=== PATIENT | male | born 1995 | race African-American/Black ===

== ENCOUNTER 2016-12-18 14:56 | Inpatient (IN) | payer OTHER ==
[~2016-12-18] VITALS: Ht 180.3 cm; Wt 86.3 kg
[2016-12-18 18:37] LABS: MEAN CORPUSCULAR HEMOGLOBIN 28.6 pg (27.0-33.0); MEAN CORPUSCULAR HGB CONC 33.2 g/dl (32.0-36.5); MEAN CORPUSCULAR VOLUME 86.1 fl (80.0-96.0); RED CELL DISTRIBUTION WIDTH 12.6 % (11.5-14.5); WHITE BLOOD COUNT 5.6 K/mm3 (4.0-10.0)
[2016-12-18 18:56] LABS: METHADONE URINE NEGATIVE (NEGATIVE)
[2016-12-18 19:06] LABS: ALBUMIN 3.7 GM/DL (3.2-5.2); ALBUMIN/GLOBULIN RATIO 1.32 (1.00-1.93); ALKALINE PHOSPHATASE 48 U/L (45-117); ALT/SGPT 43 U/L (12-78); ANION GAP 6 MEQ/L (8-16); AST/SGOT 22 U/L (15-37); BILIRUBIN,DIRECT 0.1 MG/DL (0.0-0.2); BILIRUBIN,TOTAL 0.4 MG/DL (0.2-1.0); BLOOD UREA NITROGEN 14 MG/DL (7-18); CALCIUM LEVEL 8.5 MG/DL (8.5-10.1); CARBON DIOXIDE LEVEL 29 MEQ/L (21-32); CHLORIDE LEVEL 106 MEQ/L (98-107); GLUCOSE, FASTING 98 MG/DL (70-105); POTASSIUM SERUM 3.7 MEQ/L (3.5-5.1); SODIUM LEVEL 141 MEQ/L (136-145); TOTAL PROTEIN 6.5 GM/DL (6.4-8.2)
[2016-12-18 21:35] VITALS: BP 142/95
[2016-12-18] MEDS ORDERED: traZODone 50 MG TAB PO PRN (22:30)
[2016-12-18] MEDS ORDERED: ACETAMINOPHEN TAB 650MG DOSE (2X325MG) PO PRN (22:30)
[2016-12-18] MEDS ORDERED: MOM 30ML SUSPENSION UDC PO PRN (22:30)
[2016-12-18] MEDS ORDERED: MAALOX 30 ML SUSP *UDC PO PRN (22:30)
[2016-12-19 06:31] VITALS: BP 144/77
--- NOTE | 2016-12-19 10:20 | HPEPDOC ---
Medical History and Physical Date of Admission December 18, 2016 at 18:44 History and Physical PCP: Alexey ATTENDING: Dr. Rush Isabel HPI: 21yoM admitted to [facility] for unspecified depressive disorder, being medically examined today. No acute medical complaints today. Denies any fevers, chills, weakness, fatigue, GUILLEN, CP, SOB, cough, palpitations, abdominal pain, N/V /D or changes in bowel or bladder habits. 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 Tobacco use: Once per month ETOH: One to 2 drinks every 2 months Illicit Drugs: Marijuana every few weeks. IV Drug Use: Denies Tattoos done unprofessionally: Denies FAMHX: Mother: Alive, well Father: Alive, well Siblings: Alive, well Children: none Unexpected deaths due to medical reasons: None. ROS: As noted in HPI, otherwise 11pt ROS of systems reviewed and unremarkable. PE: GEN: 21yoM, appears stated age. Well-nourished, well developed. No acute distress. Alert and oriented x 3. Pleasant, interactive. HEENT: Normocephalic, atraumatic. Pupils are equal, round, and reactive to light. Extraocular movements are intact. No nystagmus appreciated. Sclera are nonicteric. Conjunctiva without injection. Nose midline. Nasal turbinates without bogginess. EACs both patent BL. TMs both visualized and rios with good cone of light, no bulging or erythema. No facial asymmetry. Moist mucous membranes. Dentition fair. Pharynx pink and moist, no cobblestoning. Neck supple , trachea midline. No lymphadenopathy or thyromegaly appreciated. CHEST: Regular rate and rhythm, +S1, +S2 LUNGS: Clear to auscultation bilaterally. No wheezes, rales, or rhonchi. Breathing appears symmetric and easy. Patient is speaking in full sentences. No accessory muscle use. ABD: Round, soft, non-tender, non-distended. +Bowel sounds throughout. No rebound or guarding. No costovertebral angle tenderness. EXT: Pulses 2+ bilaterally dorsalis pedis and radial. No lower extremity edema appreciated. SKIN: [place], dry, warm. Capillary refill <2sec. No rashes. NEURO: Alert and oriented x 3. Cranial nerves III-XII are intact. No focal deficits appreciated. EKG: Pending. A&P: 21yoM admitted to [facility] for unspecified depressive disorder 1. Psych. Plan per Psychiatry. Obtain baseline EKG to assure the safety of psychiatric medications as they can prolong the QT interval. 2. Nicotine dependence. Patch available. 3. Allergic rhinitis. Claritin daily as needed. 4. Follow up with PCP on discharge. 5. Emiliano safety inspector present throughout exam. Vital Signs Vital Signs Date Time Temp Pulse Resp B/P (MAP) Pulse Ox O2 Delivery O2 Flow Rate FiO2 12/19/16 06:31 97.9 61 16 144/77 (99) 12/18/16 21:35 Room Air 12/18/16 14:57 99 Laboratory Data Labs 24H Laboratory Tests 2 12/18/16 18:24: Anion Gap 6L, Calcium Level 8.5, Aspartate Amino Transf (AST/SGOT) 22, Alanine Aminotransferase (ALT/SGPT) 43, Alkaline Phosphatase 48, Total Bilirubin 0.4, Direct Bilirubin 0.1, Total Protein 6.5, Albumin 3.7, Albumin/Globulin Ratio 1.32, Thyroid Stimulating Hormone (TSH) 1.730, Salicylates Level < 1.7L, Acetaminophen Level < 2.0L, Ethyl Alcohol Level < 0.003 12/18/16 18:26: Urine Amphetamines Screen NEGATIVE, Urine Benzodiazepines Screen NEGATIVE, Urine Opiates Screen NEGATIVE, Urine Methadone Screen NEGATIVE, Urine Barbiturates Screen NEGATIVE, Urine Phencyclidine Screen NEGATIVE, Urine Cocaine Metabolite Screen NEGATIVE, Urine Cannabinoids Screen NEGATIVE CBC/BMP Laboratory Tests 12/18/16 18:24 Red Blood Count 4.96, Mean Corpuscular Volume 86.1, Mean Corpuscular Hemoglobin 28.6, Mean Corpuscular Hemoglobin Concent 33.2, Red Cell Distribution Width 12.6 Home Medications No Active Prescriptions or Reported Meds Allergies Coded Allergies: No Known Allergies (Unverified , 12/18/16) Shawna Batista December 19, 2016 10:20
[2016-12-19] MEDS ORDERED: LORATADINE 10 MG TAB PO PRN (10:30)
[2016-12-19 11:44] LABS: ANION GAP 5 MEQ/L (8-16); BLOOD UREA NITROGEN 13 MG/DL (7-18); CALCIUM LEVEL 9.3 MG/DL (8.5-10.1); CARBON DIOXIDE LEVEL 30 MEQ/L (21-32); CHLORIDE LEVEL 106 MEQ/L (98-107); CREATININE FOR GFR 1.28 MG/DL (0.70-1.30); GLUCOSE, FASTING 88 MG/DL (70-105); POTASSIUM SERUM 4.4 MEQ/L (3.5-5.1); SODIUM LEVEL 141 MEQ/L (136-145)
--- NOTE | 2016-12-19 12:42 | MHHPE ---
DATE OF ADMISSION: 12/18/2016 LEGAL STATUS AT ADMISSION: 9.39 legal status. CHIEF COMPLAINT: "I have been feeling depressed". HISTORY OF PRESENT ILLNESS: 21-year-old male without prior psychiatric history admitted to our unit on a 9.39 legal status. According to the chart, the patient came to the emergency department to be evaluated for depression and suicidal ideation. The patient reports that for the last several days his depressive symptoms have worsened and he started to think about suicide. He said that he called his mom. He was seen at [place] and was sent to our emergency department for evaluation. The patient admits feeling down and depressed. He admits that he has become very emotional, "little things will set me off". Says that he cries for no reason and he is breaking down. The patient reports his energy level is low and has poor self esteem and also anhedonia. The patient admits intermittent suicidal thoughts and is motivated for treatment. The patient also reports that before he was evaluated he was having panic attacks. Stressors are the fact that his girlfriend may be moving out of town with her family. There is no evidence of psychotic symptoms. No auditory or visual hallucinations or delusions during the interview. PAST MEDICAL HISTORY: The patient reports that he has a benign heart murmur since with no complications. No known drug allergies. PAST PSYCHIATRIC HISTORY: The patient has no prior psychiatric history. This is his first admission and the first intervention from the psychiatric point of view. FAMILY HISTORY: The patient believes his mother has depression, although she has never been diagnosed. He has a grandfather that was an alcoholic and a brother who abuses cannabis. SUBSTANCE ABUSE HISTORY: The patient denies any current or past problems with drugs or alcohol. He admits he experimented with marijuana in the past, but is not currently using. SOCIAL HISTORY: The patient was raised by both his parents. His father was an active duty that just retired. The patient denies any problems socializing. The patient denies any abuse or neglect during childhood. He graduated high school. He is working temporarily, but is planning to go back to school in the near future. The patient reports that he has a good support system with his family and his friends. REVIEW OF SYSTEMS: Constitutional: No weight loss, fever, chills, weakness or fatigue. HEENT: No visual loss, blurry vision, double vision or yellow sclerae. No hearing loss, nasal congestion, runny nose or sore throat. Skin: No rash or itching. Cardiovascular: No chest pain, chest pressure, chest discomfort, palpitations or edema. Respiratory: No shortness of breath, cough or sputum. Gastrointestinal (GI): No anorexia, nausea, vomiting or diarrhea. No abdominal pain. No blood. Genitourinary (): No burning or pain on urination. Neurological: No headache, dizziness, syncope, paralysis, ataxia, numbness or tingling. Musculoskeletal: No muscle, back pain, joint pain or stiffness. Hematologic: No anemia, bleeding or bruising. Lymphatics: No history of a splenectomy. Endocrinologic: No report of sweating, cold or heat intolerance. No polyuria or polydipsia. Allergies: No history of asthma, hives, eczema or rhinitis. PHYSICAL EXAMINATION: As per physician customer care assistant. LABS AT ADMISSION: CBC is unremarkable. CMP within normal limits. TSH within normal limits. Urine drug screen is negative. Blood alcohol level is negative. MENTAL STATUS EXAMINATION: The patient is dressed in [facility]. The patient is cooperative during exam. Speech is soft and monotone. Eye contact is poor. Mood is depressed and anxious. Affect is labile, restricted and congruent with mood. The patient is oriented to time, place, person and situation. Maintains attention and concentration correctly. Instant recall, recent and remote memory are intact. Thought processes are coherent, logical and goal directed. The patient does not have auditory or visual hallucination. The patient does not have paranoid, persecutory, somatic, grandiose or lutheran delusions. The patient is reporting suicidal ideation, but denies homicidal thoughts. Judgment and insight are limited. DIAGNOSES: [place] I: Major depressive disorder. Morenci II: Deferred. [place]nci III: None acute. INITIAL TREATMENT PLAN: The patient was admitted on a 9.39 legal status. Complete history was obtained. With his permission, family with be contacted and database will be expanded. His medication regime will be reviewed and changed accordingly. He will be provided with protected environment. He will be treated with individual, group and milieu therapy. He will also receive supportive psychoeducation. Discharge planning will commence immediately. Length of stay will be between 5-7 days. Outpatient followup will be strongly recommended. The treatment plan will focus initially on depression and risk for suicide.
[2016-12-19] MEDS: VENLAFAXINE **XR** 37.5 MG CAPSULE PO SCH (13:06)
[2016-12-20 06:46] VITALS: BP 134/68
[2016-12-20] MEDS: VENLAFAXINE **XR** 37.5 MG CAPSULE PO SCH (08:49)
--- NOTE | 2016-12-20 15:50 | IPN ---
DATE: 12/20/2016 21-year-old male admitted for depression. SUBJECTIVE: "I'm feeling about the same." OBJECTIVE: No major changes from yesterday's evaluation. Patient denies side effect from the medication. Patient was able to sleep well last night. Patient continues anxious with soft, monotone speech, restricted facial expression, intermittent suicidal thoughts, and high anxiety. No evidence of psychotic symptoms. MENTAL STATUS EXAMINATION: Patient is dressed in [facility]. Patient is cooperative during exam. Has poor eye contact. Speech is slow and monotone. Mood is depressed and anxious. Affect is congruent with mood. No evidence of delusions or hallucinations. Short-term and long-term memory are fair. Patient is fully oriented. Associations are intact. Thinking is logical. Thought content is appropriate. Patient is able to contract for safety while hospitalized. Insight and judgment is limited. ASSESSMENT: 1. Depression. 2. Suicidal ideation. PLAN: 1. Increase Effexor XR to 75 mg by mouth every morning. 2. Continue with trazodone as needed for insomnia. 3. Continue medication management, individual and group therapy.
[2016-12-20 18:00] VITALS: BP 146/76
--- NOTE | 2016-12-20 19:44 | ECGEPIP ---
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 No prior ECG available for comparison at the time of interpretation. Electronically Signed On 12-20-2016 19:43:42 EDT by Rush Ramos
[2016-12-21 06:22] VITALS: BP 134/68
[2016-12-21] MEDS: VENLAFAXINE **XR** 75MG CAPSULE PO SCH (07:58)
[2016-12-21 18:00] VITALS: BP 123/73
--- NOTE | 2016-12-21 22:19 | IPN ---
DATE: 12/21/2016 A 21-year-old male admitted for depression and suicidal ideation. SUBJECTIVE: "I'm feeling a little better." OBJECTIVE: Patient is improving slowly. He is socializing better. He is getting out of the room and interacting better with other patients and staff. Patient is still displaying some psychomotor retardation, but is improving. Facial expression is somewhat restricted. Patient is able to contract for safety during the interview. There is no evidence of psychotic symptoms. MENTAL STATUS EXAMINATION: Patient is dressed in [facility]. Patient is cooperative during examination. Has fair eye contact. Speech is soft and monotone. Mood is depressed and anxious, but improving. Affect is somewhat restricted, but also improving. No delusions or hallucinations. Memory is fair. Patient is fully oriented. Sensations are intact. Thinking is logical. Thought content is appropriate. Patient is able to contract for safety during the interview and denies suicidal or homicidal ideation. Insight and judgment is fair. ASSESSMENT: 1. Depression. 2. Suicidal ideation. PLAN: 1. Continue Effexor XR 75 mg by mouth every morning. 2. Continue with trazodone as needed for insomnia. 3. Continue medication management, individual and group therapy.
[2016-12-22 07:09] VITALS: BP 152/78
[2016-12-22] MEDS: VENLAFAXINE **XR** 75MG CAPSULE PO SCH (09:15)
[2016-12-22 18:00] VITALS: BP 146/88
--- NOTE | 2016-12-22 21:10 | IPN ---
DATE: 12/22/2016 A 21-year-old male admitted for depression and suicidal ideation. SUBJECTIVE: "I'm feeling much better." OBJECTIVE: The patient continues to improve. The patient is able to interact better with other patients. The patient no longer displays psychomotor retardation. His facial expression is not as restricted. The patient is able to contract for safety and denied suicidal ideation during the interview. There is no evidence of psychotic symptoms. MENTAL STATUS EXAMINATION: The patient is dressed in [facility]. The patient is calmer and cooperative during the interview. Speech is normal in rate and volume. Articulation is coherent and spontaneous. Mood is depressed and anxious but improving. Affect is not as restricted. No delusions or hallucinations. Memory, attention and concentration are within normal limits. The patient is able to contract for safety and denies suicidal ideation during the interview. Insight and judgment are fair. ASSESSMENT: 1. Depression. 2. Suicidal ideation. PLAN: 1. Continue Effexor XR 75 mg by mouth every morning 2. Continue with trazodone as needed for insomnia. 3. Continue medication management, individual and group therapy.
[2016-12-23 06:00] VITALS: BP 143/80
[2016-12-23] MEDS: VENLAFAXINE **XR** 75MG CAPSULE PO SCH (09:32)
[2016-12-23 18:00] VITALS: BP 155/68
[2016-12-24 06:17] VITALS: BP 148/72
[2016-12-24] MEDS: VENLAFAXINE **XR** 75MG CAPSULE PO SCH (08:13)
[2016-12-24] MEDS ORDERED: VENL75CA PO (09:45)
--- NOTE | 2016-12-24 21:12 | MHDS ---
DATE OF ADMISSION: 12/18/2016 DATE OF DISCHARGE: 12/24/2016 LEGAL STATUS AT ADMISSION: 9.39 legal status. HISTORY OF PRESENT ILLNESS: 21-year-old male without prior psychiatric history admitted to our unit on a 9.39 legal status. According to the chart, the patient came to the emergency department to be evaluated for depression and suicidal ideation. Patient reports that for the past several days he has been depressed and he has started thinking about suicide. He said that he called his mother and that he was seen at [place] prior to being sent to our emergency department. Again, patient admitted feeling down and depressed and also that he has become very emotional, "little things will set me off." He says that he cries for no reason and that he is breaking down. Patient reports his energy level is low and he has poor self-esteem and also anhedonia. Patient admits intermittent suicidal thoughts and he is motivated for treatment. Patient also reports that before he was evaluated he was having panic attacks. Stressors are the fact that his girlfriend is moving out of town with her family. During the interview there was no evidence of psychotic symptoms, no auditory or visual hallucinations or delusions. LABORATORY DATA: At admission: His CBC was within normal limits. CMP was unremarkable. TSH within normal limits. Urine drug screen (UDS) was negative. Blood alcohol level was negative. HOSPITAL COURSE: After the first evaluation, patient was started on Effexor XR 37.5 mg by mouth every morning and trazodone as needed for insomnia, but patient did not take this last medication during this hospitalization. He tolerated well the Effexor and it was increased to 75 mg by mouth every morning. With this medication, patient was stabilized. Patient had no complications during this hospital admission. His mood improved slowly but steadily. He was motivated for treatment and he was going to all psychotherapeutic activities of the unit. By the end of the hospitalization, patient is significantly improved from admission. Patient is denying suicidal or homicidal ideation. There is no evidence of psychotic symptoms, no auditory or visual hallucinations or delusions. Patient has been interacting well with other patients and staff and is able to smile. He does not have psychomotor retardation and his affect is normalized. He also stated that he is motivated for treatment and he will continue to take his medication on outpatient basis. MENTAL STATUS EXAMINATION AT DISCHARGE: Patient is dressed in [facility]. Patient is calm and cooperative. His speech is clear, coherent, with normal rate and is spontaneous. Patient has good eye contact. Mood is euthymic. Affect is appropriate and congruent with mood. Patient is oriented to time, place, person, and situation. Maintains attention and concentration correctly. Instant recall, recent, and remote memory are intact. Thought processes are coherent, logical, and goal-directed. Patient does not have auditory or visual hallucinations. Patient does not have paranoid, persecutory, somatic, grandiose, or shinto delusions. Patient denies suicidal or homicidal ideation. Judgment and insight are fair. DISCHARGE DIAGNOSES: AXIS I: Major depressive disorder. AXIS II: Deferred. AXIS III: None acute. MEDICATIONS AT DISCHARGE: - Effexor XR 75 mg by mouth every morning CONDITION AT DISCHARGE: Stable. No auditory or visual hallucinations. No delusions. No suicidal or homicidal ideation. INSTRUCTIONS TO THE PATIENT: Patient is to continue taking his medication as discharged and followup appointment. He is advised to maintain absolute sobriety from drugs and alcohol. Patient has a scheduled appointment for medication management, individual psychotherapy, and primary care physician.
== END 2016-12-24 12:30 | disposition home or self-care (01) | DRG 881 ==
LOC: M ED 16:31 → M ED INP 18:44 → M PSY 20:00
PROVIDERS: ADMIT Psychiatry & Neurology Psychiatry; ATTEND Psychiatry & Neurology Psychiatry
DX: F32.9 Major depressive disorder, single episode, unspecified (principal); F17.210 Nicotine dependence, cigarettes, uncomplicated; J30.9 Allergic rhinitis, unspecified